=== PATIENT | male | born 1955 | race Caucasian/White ===

== ENCOUNTER 2016-12-13 16:49 | Outpatient (CLI) | payer BC | END 2016-12-13 20:51 | disposition home or self-care (01) | LOC: SRD 16:49 | PROVIDERS: ATTEND Internal Medicine | DX: M17.11 Unilateral primary osteoarthritis, right knee (principal); M25.461 Effusion, right knee | CPT/HCPCS: 73564 ==

== ENCOUNTER 2020-06-26 09:07 | Emergency (ER) | payer BC, OTHER ==
[~2020-06-26] VITALS: Ht 170.2 cm; Wt 90.7 kg
[2020-06-26 09:28] VITALS: BP_SYST 113
[2020-06-26] MEDS ORDERED: MAGNESIUM CITRATE 300 ML ORAL SOLUTION PO ONE (10:00)
[2020-06-26 10:07] VITALS: BP_SYST 113
== END 2020-06-26 10:08 | disposition home or self-care (01) ==
LOC: SED 09:07
DX: R10.9 Unspecified abdominal pain (principal); I10 Essential (primary) hypertension; E11.9 Type 2 diabetes mellitus without complications
CPT/HCPCS: 99282